=== PATIENT | female | born 1960 | race Caucasian/White ===

== ENCOUNTER 2019-02-16 10:32 | Outpatient (CLI) | payer OTHER ==
--- NOTE | 2019-02-16 13:03 | CT ---
CT RIGHT ANKLE WITHOUT CONTRAST: INDICATIONS: Concern for fracture nonunion of the right lateral ankle; history of fall in August 2018. COMPARISON: None. FINDINGS: There are partially threaded screws transfixing a healed medial malleolar fracture. There is a latera l plate and screw construct fixating a transverse oriented fracture of the distal fibular metadiaphyseal region. There are two separate syndesmotic screws traversing distal tibiofibular synde smosis. The instrumentation appears intact without evidence of hardware failure. There is a minimal amount of bridging bone seen along the anterior medial aspect of the fracture site. No additional caitlin dging bone is evident. Approximately 15% of the fracture demonstrates bridging bone with a majority or 85% of the fracture being incompletely healed. There is heterotopic ossification seen along the an terior margin of the distal fibular shaft. There is prominent disuse osteopenia of the hindfoot. No acute fracture is evident. There are moderate degenerative changes involving the midfoot and hindfoot . There is moderate enthesopathic change off the posterior and plantar calcaneus. IMPRESSION: 1. Incompletely healed distal fibular metadiaphyseal fracture. Only approximately 15% of the fracture appears to have bridging bone that traverses the fracture site. 2. Instrumented, healed medial malleolar fracture. 3. Disuse osteopenia. 4. Moderate degenerative changes of the midfoot and hindfoot. Transcribed Date/Time: 02/16/2019 1:13 PM
== END 2019-02-16 10:33 | disposition home or self-care (01) ==
LOC: SCSCT 10:32
PROVIDERS: ATTEND Orthopaedic Surgery
DX: S82.841D Displaced bimalleolar fracture of right lower leg, subsequent encounter for closed fracture with routine healing (principal); S82.831G Other fracture of upper and lower end of right fibula, subsequent encounter for closed fracture with delayed healing; M85.80 Other specified disorders of bone density and structure, unspecified site; M19.071 Primary osteoarthritis, right ankle and foot

== ENCOUNTER 2022-01-30 15:42 | Emergency (ER) | payer BC ==
[2022-01-30] MEDS ORDERED: Morphine 4 MG/ML VIAL ONE (16:52)
[2022-01-30] MEDS ORDERED: PROPOFOL 20 ML ONE (17:14)
== END 2022-01-30 19:02 | disposition home or self-care (01) ==
LOC: ERS 15:42
DX: S52.502A Unspecified fracture of the lower end of left radius, initial encounter for closed fracture (principal); I10 Essential (primary) hypertension; E78.5 Hyperlipidemia, unspecified; Z79.899 Other long term (current) drug therapy
CPT/HCPCS: 24600; 96374; 99152; 99153; J2270; J2704

== ENCOUNTER 2022-02-15 10:46 | Outpatient (CLI) | payer BC | END 2022-02-15 10:47 | disposition home or self-care (01) | LOC: BICMAMMO 10:46 | PROVIDERS: ATTEND Orthopaedic Surgery Hand Surgery | DX: M85.88 Other specified disorders of bone density and structure, other site (principal); S42.402A Unspecified fracture of lower end of left humerus, initial encounter for closed fracture | CPT/HCPCS: 77080 ==

== ENCOUNTER 2022-03-23 07:28 | Day surgery (SDC) | payer BC ==
[2022-03-19 13:05] VITALS: BMI 39.1
[2022-03-23] MEDS ORDERED: CEFAZOLIN 2 GM VIAL ONE (08:04)
[2022-03-23] MEDS ORDERED: Sodium Chloride 0.9% 100 ML ONE (08:04)
[2022-03-23] MEDS ORDERED: Scopolamine 1.5 mg/72 hour Patch ONE (08:07)
[2022-03-23] MEDS ORDERED: fentaNYL PF 100 MCG/2 ML SYRINGE ONE (08:21)
[2022-03-23] MEDS ORDERED: Lidocaine 1% PF 5 ML VIAL ONE (08:27)
[2022-03-23] MEDS ORDERED: PROPOFOL 200 MG/20 ML VIAL ONE (08:27)
[2022-03-23] MEDS ORDERED: PROPOFOL 20 ML ONE (08:32)
[2022-03-23] MEDS ORDERED: Bupivacaine PF 0.5% 30 ML VIAL ONE (08:36)
[2022-03-23] MEDS ORDERED: Neomycin-Polymyxin 1 ML AMP ONE (08:36)
[2022-03-23] MEDS ORDERED: Bacitracin Zinc Ointment 30 gm TUBE ONE (08:36)
[2022-03-23] MEDS ORDERED: Ketorolac Tromethamine 30 MG/ML VIAL ONE (09:19)
== END 2022-03-23 10:15 | disposition home or self-care (01) ==
LOC: SDC 07:28
PROVIDERS: ATTEND Orthopaedic Surgery Hand Surgery
PROC: 0PPH04Z Removal of Internal Fixation Device from Right Radius, Open Approach (ICD-10-PCS; principal; 2022-03-23)
DX: T84.84XA Pain due to internal orthopedic prosthetic devices, implants and grafts, initial encounter (principal); M85.80 Other specified disorders of bone density and structure, unspecified site; J30.2 Other seasonal allergic rhinitis; E78.00 Pure hypercholesterolemia, unspecified; Z79.83 Long term (current) use of bisphosphonates; Z79.899 Other long term (current) drug therapy; Z88.1 Allergy status to other antibiotic agents; Z88.2 Allergy status to sulfonamides; Y79.3 Surgical instruments, materials and orthopedic devices (including sutures) associated with adverse incidents
CPT/HCPCS: J1885; J2704; J3490; S0020

== ENCOUNTER 2022-05-20 13:31 | Outpatient (CLI) | payer BC | END 2022-05-20 13:32 | disposition home or self-care (01) | LOC: TBSIIMAG 13:31 | PROVIDERS: ATTEND Orthopaedic Surgery Hand Surgery | DX: M75.102 Unspecified rotator cuff tear or rupture of left shoulder, not specified as traumatic (principal); S43.402A Unspecified sprain of left shoulder joint, initial encounter; R60.0 Localized edema ==

== ENCOUNTER 2023-04-07 12:48 | Inpatient (IN) | payer BC ==
[~2023-04-07 12:48] MED LIST: Iopamidol-370 76% 500 ML MDV (1 ML CHARGE) ONE
[2023-04-07 13:21] LABS: #Monocytes 0.3 thou/uL (0.11-0.59); #Neutrophils 9.2 thou/uL (1.40-6.50); %Basophils 0.3 % (0.0-1.0); %Eosinophils 0.1 % (0.0-10.0); %Lymphocytes 6.6 % (21.0-51.0); %Monocytes 2.5 % (0.0-10.0); %Neutrophils 90.2 % (42.0-75.0); Hematocrit 43.4 % (36.0-47.0); Hemoglobin 14.1 g/dL (12.0-16.0); Mean Corpuscular HGB CONC 32.5 g/dL (32.0-36.0); Mean Corpuscular Hemoglobin 29.6 pg (27.0-31.0); Mean Corpuscular Volume 91.2 fl (78.0-98.0); Mean Platelet Volume 9.6 fL (7.4-10.4); Platelet Count 167 10x3/uL (130-400); RBC Distribution Width 13.2 % (11.5-14.5); Red Blood Cell (RBC) Count 4.76 mill/uL (4.20-5.40); White Blood Cell (WBC) Count 10.2 10x3/uL (4.8-10.8)
[2023-04-07 13:51] LABS: ALT (SGPT) 17 U/L (8-55); AST (SGOT) 13 U/L (5-34); Albumin 4.5 g/dL (3.4-4.8); Alkaline Phosphatase 88 U/L (40-110); Anion Gap 16 mmol/L (10-20); BUN (Urea Nitrogen) 11 mg/dL (9.8-20.1); Bilirubin, Total 1.5 mg/dL (0.2-1.2); Calc. Creatinine Clearance 0 mL/min (70-130); Calcium 9.5 mg/dL (7.8-10.44); Carbon Dioxide 21 mmol/L (23-31); Chloride 105 mmol/L (98-107); Estimated GFR 79; Globulin 3.6 g/dL (2.4-3.5); Glucose 134 mg/dL (80-115); Potassium 3.9 mmol/L (3.5-5.1); Protein, Total 8.1 g/dL (5.8-8.1); Sodium 138 mmol/L (136-145)
[2023-04-07 14:57] LABS: Bacteria/HPF 2+ HPF (None Seen); Bilirubin Negative (Negative); Blood, Urine 2+ (Negative); CAUTI Indications for Culture Dysuria,urgency,freq; Clarity Turbid (Clear); Glucose, Urine (Dipstick) Normal (Negative); Ketone, Urine 60 mg/dL (Negative); Leukocyte Negative Leu/uL (Negative); Nitrite 2+ (Negative); Protein, Urine (Dipstick) 50 mg/dL (Neg-Trace); Specific Gravity, Urine 1.026 (1.002-1.036); Urobilinogen Normal mg/dL (Less than 2)
[2023-04-07 14:59] LABS: Urine Culture Reflex Yes Yes
[2023-04-07] MEDS ORDERED: Sodium Chloride 0.9% 100 ML ONE ×2 (14:59→18:44)
[2023-04-07] MEDS ORDERED: Piperacillin/Tazobactam 4.5 GM VIAL ONE (14:59)
[2023-04-07] MEDS ORDERED: Dextrose 5% in Water 1,000 ML IV PRN (15:17)
[2023-04-07] MEDS ORDERED: Dextrose 50% Abboject 50 ML SYRINGE SLOW IVP PRN (15:17)
[2023-04-07] MEDS ORDERED: Ipratropium/Albuterol 3 ML NEB NEB PRN (15:17)
[2023-04-07] MEDS ORDERED: hydrALAZINE 20 MG/ML VIAL SLOW IVP PRN (15:17)
[2023-04-07] MEDS ORDERED: Promethazine HCl 25 MG/ML VIAL IM PRN ×2 (15:17→20:01)
[2023-04-07] MEDS ORDERED: Glucagon 1 MG/ML KIT IM PRN (15:17)
[2023-04-07] MEDS ORDERED: Acetaminophen 325 MG TAB PO PRN (15:17)
[2023-04-07] MEDS ORDERED: traMADol HCl 50 MG TAB PO PRN (15:20)
[2023-04-07] MEDS ORDERED: HYDROcodone/Acetaminophen 5/325 mg Tablet PO PRN ×2 (15:20→19:55)
[2023-04-07] MEDS ORDERED: Morphine 4 MG/ML VIAL ONE (15:28)
[2023-04-07] MEDS ORDERED: Ondansetron PF 4 MG/2 ML Vial ONE ×3 (15:28→20:11)
[2023-04-07] MEDS ORDERED: Lidocaine 1% PF 5 ML VIAL ONE (18:01)
[2023-04-07] MEDS ORDERED: Morphine 2 MG/ML VIAL ONE (18:01)
[2023-04-07] MEDS ORDERED: Dexamethasone 4 mg/ml Vial ONE (18:01)
[2023-04-07] MEDS ORDERED: fentaNYL PF 100 MCG/2 ML SYRINGE ONE ×3 (18:01→20:11)
[2023-04-07] MEDS ORDERED: Rocuronium Bromide 10 MG/ML (10ML VIAL) ONE (18:01)
[2023-04-07] MEDS ORDERED: SUGAMMADEX SODIUM 200 MG/2 ML VIAL ONE (18:02)
[2023-04-07] MEDS ORDERED: SUCCINYLCHOLINE/SOD CL,ISO/PF 200 MG/10 ML SYRINGE FS ONE ×2 (18:02→18:51)
[2023-04-07] MEDS ORDERED: PROPOFOL 40 ML ONE (18:02)
[2023-04-07] MEDS ORDERED: CEFAZOLIN 2 GM VIAL ONE (18:43)
[2023-04-07] MEDS ORDERED: PROPOFOL 20 ML ONE (18:51)
[2023-04-07] MEDS ORDERED: PHENYLEPHRINE-NS 100 MCG/ML 10 ML SYRINGE ONE (19:15)
[2023-04-07] MEDS ORDERED: ePHEDrine Sulfate 50 MG/10 ML VIAL ONE (19:22)
[2023-04-07] MEDS ORDERED: Ondansetron HCl/PF 4 MG/2 ML Vial IVP PRN (20:01)
[2023-04-07] MEDS ORDERED: Ketorolac Tromethamine 30 MG/ML VIAL IVP PRN (20:01)
[2023-04-07] MEDS ORDERED: Meperidine HCl/PF 25 MG/ML VIAL SLOW IVP PRN ×2 (20:01)
[2023-04-07] MEDS ORDERED: Ketorolac Tromethamine 30 MG (1 mL) VIAL ONE (20:11)
[2023-04-07] MEDS: Famotidine/PF 20 mg/2ml Vial SLOW IVP SCH (21:47)
[2023-04-07] MEDS: Piperacillin/Tazobactam 3.375 GM in Sodium Chloride 0.9% 100 ML IVPB SCH (21:47)
[2023-04-07] MEDS: Ondansetron PF 4 MG/2 ML Vial IVP PRN (22:13)
[2023-04-07 22:16] VITALS: BMI 35.2
[2023-04-07] MEDS: Famotidine 20 MG TAB PO SCH (22:46)
[2023-04-08] MEDS: Morphine 4 MG/ML VIAL SLOW IVP PRN (04:43)
[2023-04-08 04:55] LABS: #Monocytes 0.6 thou/uL (0.11-0.59); #Neutrophils 8.4 thou/uL (1.40-6.50); %Basophils 0.1 % (0.0-1.0); %Lymphocytes 6.8 % (21.0-51.0); %Neutrophils 86.7 % (42.0-75.0); Hemoglobin 11.9 g/dL (12.0-16.0); Mean Corpuscular HGB CONC 33.1 g/dL (32.0-36.0); Mean Corpuscular Hemoglobin 30.4 pg (27.0-31.0); Mean Corpuscular Volume 92.1 fl (78.0-98.0); Mean Platelet Volume 10.1 fL (7.4-10.4); Platelet Count 152 10x3/uL (130-400); RBC Distribution Width 13.4 % (11.5-14.5); Red Blood Cell (RBC) Count 3.91 mill/uL (4.20-5.40); White Blood Cell (WBC) Count 9.7 10x3/uL (4.8-10.8)
[2023-04-08 05:25] LABS: ALT (SGPT) 11 U/L (8-55); AST (SGOT) 10 U/L (5-34); Albumin 3.6 g/dL (3.4-4.8); Alkaline Phosphatase 65 U/L (40-110); Anion Gap 14 mmol/L (10-20); BUN (Urea Nitrogen) 12 mg/dL (9.8-20.1); Bilirubin, Total 1.5 mg/dL (0.2-1.2); Calc. Creatinine Clearance 98 mL/min (70-130); Calcium 8.6 mg/dL (7.8-10.44); Carbon Dioxide 19 mmol/L (23-31); Chloride 107 mmol/L (98-107); Estimated GFR 76; Globulin 3.1 g/dL (2.4-3.5); Glucose 155 mg/dL (80-115); Potassium 3.7 mmol/L (3.5-5.1); Protein, Total 6.7 g/dL (5.8-8.1); Sodium 136 mmol/L (136-145)
[2023-04-08] MEDS: Morphine 2 MG/ML VIAL SLOW IVP PRN (13:15)
[2023-04-08] MEDS ORDERED: Acetaminophen 500 MG TAB PO PRN (13:26)
[2023-04-08] MEDS ORDERED: Ibuprofen 600 MG TAB PO PRN (13:26)
[2023-04-08] MEDS ORDERED: traMADol HCl 50 MG TAB PO PRN (13:31)
[2023-04-08 15:13] VITALS: BP 137/76; TEMP 98.7
[2023-04-08] MEDS ORDERED: Amoxicillin/Potassium Clav 500 MG TAB PO SCH (21:00)
== END 2023-04-08 17:45 | disposition home or self-care (01) | DRG 399 ==
LOC: ERS 12:48 → SDC/OP 18:34 → SJJU 20:42
PROVIDERS: ADMIT Surgery; ATTEND Surgery
PROC: 0DTJ4ZZ Resection of Appendix, Percutaneous Endoscopic Approach (ICD-10-PCS; principal; 2023-04-07)
DX: K35.33 Acute appendicitis with perforation, localized peritonitis, and gangrene, with abscess (principal); E03.9 Hypothyroidism, unspecified; I10 Essential (primary) hypertension; E78.5 Hyperlipidemia, unspecified; Z98.890 Other specified postprocedural states; Z88.1 Allergy status to other antibiotic agents; Z88.2 Allergy status to sulfonamides; Z91.09 Other allergy status, other than to drugs and biological substances; J06.9 Acute upper respiratory infection, unspecified
CPT/HCPCS: 36415; 74177; 80053; 81001; 85025; 87040; 87077; 87086; 87186; 87635; 88304; 96365; 96375; 96376; A4649; J1100; J1885; J2270; J2272; J2405; J2543; J2704; J3490; Q9967; S0028

== ENCOUNTER 2024-11-02 10:36 | Outpatient (CLI) | payer MEDICARE, OTHER | END 2024-11-02 10:37 | disposition home or self-care (01) | LOC: BICRAD 10:36 | PROVIDERS: ATTEND Family Medicine | DX: M25.562 Pain in left knee (principal); M17.12 Unilateral primary osteoarthritis, left knee ==